=== PATIENT | female | born 1990 | race Caucasian/White ===

== ENCOUNTER 2022-02-13 17:45 | Emergency (ER) | payer BC ==
[~2022-02-13] VITALS: Ht 160 cm; Wt 63.5 kg
[2022-02-13 18:11] VITALS: BP_SYST 131
[2022-02-13 20:30] VITALS: BP_SYST 128
[2022-02-13] MEDS ORDERED: IBUP-1969 PO (20:57)
[2022-02-13] MEDS ORDERED: PSEU30TA36 PO (20:57)
== END 2022-02-13 20:30 | disposition home or self-care (01) ==
LOC: SED 17:45
DX: J40 Bronchitis, not specified as acute or chronic (principal); R05.9 Cough, unspecified; R09.81 Nasal congestion; J02.9 Acute pharyngitis, unspecified; Z79.899 Other long term (current) drug therapy; Z20.822 Contact with and (suspected) exposure to COVID-19
CPT/HCPCS: 36415; 71045; 99284